=== PATIENT | female | born 1965 | race Two or more races ===

== ENCOUNTER 2024-04-14 21:27 | Emergency (ER) | payer MEDICAID, OTHER ==
[~2024-04-14] VITALS: Ht 165.1 cm; Wt 90.0 kg
[2024-04-14 21:56] LABS: Urine Bacteria None Seen /hpf (None Seen)
--- NOTE | 2024-04-14 21:59 | ED.PDOC ---
REGIONAL CONTROLLER HPI Comments HPI: Ross Maico HPI: Poor Historian. 58 y.o female presents to the ED for a chief complaint of vaginal bleeding that started today at 1330. Patient reports heavy bleeding and went through a total o f 7 pads today. Patient is in menopause x 10 years and states no previous bleeding since. Patient has pap smears done every 2 years that result normal. She reports some discomfort but no cramping or sharp pelvic or abdominal pain. She denies any use of blood thinners. VITALS: Temp: 99 F RR: 18 02 sat : 96% RA HR: 80 BP: 142/97 Past medical history: DM, HTN and Gout Past surgical history: x2 REVIEW OF SYSTEMS: CONSTITUTIONAL: Denies acute: fever, diaphoresis, chills, generalized weakness. HEAD: Denies acute: headache, photophobia Eyes: Denies acute: Double vision, vision loss, eye pain, eye discharge. EARS: Denies acute: tinnitus, hearing loss, ear discharge, ear pain, THROAT: Denies acute: sore throat, swelling, difficulty swallowing , pain with swallowing, change in voice. NECK: Denies acute: neck pain, neck swelling, stiff neck. HEART: Denies acute : chest pain, palpitations, LUNGS: Denies acute: SOB, wheezing, cough, hemoptysis ABDOMEN: Denies acute: abdominal pain, Nausea, Vomiting, diarrhea, melena , hematemesis, hematochezia SKIN: Denies acute: rash, redness, lesions, itchiness. EXTREMITIES: Denies acute: calf pain, numbness, tingling, weakness, denies pain in extremity. Denies acute: Low back pain. Neuro: Denies acute: focal neurological deficit, motor or sensory focal neurological deficit, tremors, seizure like activity, confusion, dizziness, change in mental status, loss of bowel or bladder function, cauda equina like symptoms. : Denies acute: dysuria, hematuria, flank pain, increase in urinary frequency. PSYCH: Denies acute: hallucination, suicidal ideation, homicidal ideation. FEMALE: Denies acute: foul odor, unusual discharge. PHYSICAL EXAM: General: no acute distress, awake and alert. Head: normocephalic, atraumatic. Neck: supple, trachea is midline, no swelling. Throat: Normal phonation. Eyes:, no erythema, no purulent discharge, no proptosis, no icterus. Heart: regular rate, regular rhythm, no significant murmur appreciated. Lungs: no apparent respiratory distress, Able to speak in full sentences. No wheezing, no rhonchi, no crackles. No stridors Clear to auscultation bilaterally. Abdomen: non tender to palpation, non distended, soft, no guarding, no rebound, + bowel sounds. Neuro: Awake, Alert, oriented to name, self, situation, follows commands GCS=15. Speech is normal. Skin: no petechia, no purpura, no cyanosis, non-pale, not jaundice. Lower extremities: --no - Pitting edema no deformity, no focal swelling, no calf TTP. Makes eye contact. moves all four extremities. Face: no apparent facial droop. Ambulating in the ED independently. Chief Complaint: Vaginal Bleed Time Seen by MD: 21:48 Reviewed Notes: Allergies Allergies: Coded Allergies: NO KNOWN ALLERGIES (Unverified , 04/15/24) Information Source: Patient Mode of Arrival: Ambulatory Timing: Hours Past Medical History PAST MEDICAL HISTORY: DM, Gout, HTN Surgical History: (2) ICT SALES REPRESENTATIVE History: No Pertinent ICT SALES REPRESENTATIVE History Family History Family History: Reviewed,noncontributory to illness Social History Smoker: Non-Smoker Alcohol: Denies ETOH Use Drugs: Denies Drug Use Lives In: Home Was a procedure done? Was a procedure done?: No Differential Diagnosis (ICT SALES REPRESENTATIVE) Vaginal Bleeding: Blood Loss Anemia, Dysmenorrhea, Hormonal, Menorrhagia, Menometrorrhagia, Menstrual Bleeding, Myomatous Uterus, UTI, Vaginitis X-Ray, Labs, Meds, VS Vital Signs Date Time Temp Pulse Resp B/P (MAP) Pulse Ox O2 Delivery O2 Flow Rate FiO2 04/15/24 01:01 98.9 88 18 140/90 (107) 96 98.9 04/15/24 00:56 Room Air* 0 21 04/14/24 21:46 99.2 80 18 142/97 (112) 96 Lab Test 04/15/24 02:44 04/14/24 23:05 04/14/24 22:08 04/14/24 21:56 Range/Units Hemoglobin 12.9 13.1 12.2-16.2 g/dL Hematocrit 38.6 38.4 36.0-46.0 % White Blood Count 9.5 4.4-10.8 10^3/uL Red Blood Count 4.50 4.0-5.20 10^6/uL Mean Corpuscular Volume 85.3 80.0-100.0 fL Mean Corpuscular Hemoglobin 29.1 28.0-32.0 pg Mean Corpuscular Hemoglobin Concent 34.1 32.0-36.0 g/dL Red Cell Distribution Width 14.5 H 11.8-14.3 % Platelet Count 328 140-450 10^3/uL Mean Platelet Volume 7.5 6.9-10.8 fL Neutrophils (%) (Auto) 41.8 37.0-80.0 % Lymphocytes (%) (Auto) 47.3 10.0-50.0 % Monocytes (%) (Auto) 7.9 0.0-12.0 % Eosinophils (%) (Auto) 1.9 0.0-7.0 % Basophils (%) (Auto) 1.1 0.0-2.0 % Neutrophils # (Auto) 4.0 1.6-8.6 10 ^3/uL Lymphocytes # (Auto) 4.5 0.4-5.4 10 ^3/uL Monocytes # (Auto) 0.8 0-1.3 10 ^3/uL Eosinophils # (Auto) 0.2 0-0.8 10 ^3/uL Basophils # (Auto) 0.1 0-0.2 10 ^3/uL Nucleated Red Blood Cells 0.1 % Sodium Level 137 136-145 mmol/L Potassium Level 4.1 3.5-5.1 mmol/L Chloride Level 104 98-107 mmol/L Carbon Dioxide Level 19 L 20-31 mmol/L Anion Gap 14 5-15 Blood Urea Nitrogen 27 H 9-23 mg/dL Creatinine 1.11 H 0.550-1.02 mg/dL Glomerular Filtration Rate Calc 58 >90 mL/min BUN/Creatinine Ratio 24.3 H 10.0-20.0 Serum Glucose 98 74-106 mg/dL Lactic Acid Level 0.9 0.4-2.0 mmol/L Calcium Level 10.8 H 8.7-10.4 mg/dL Total Bilirubin 0.3 0.2-1.0 mg/dL Aspartate Amino Transferase (AST) 23 13-40 U/L Alanine Aminotransferase (ALT) 30 7-40 U/L Alkaline Phosphatase 76 46-116 U/L Total Protein 7.7 5.7-8.2 g/dL Albumin 4.8 3.2-4.8 g/dL Urine Color Light-red Yellow Urine Clarity Ex.turbid Clear Urine pH 5.5 5.0-9.0 Urine Specific Stephenson 1.017 1.001-1.035 Urine Protein 1+ H Negative Urine Ketones Negative Negative Urine Blood 3+ H Negative /uL Urine Nitrite Negative Negative Urine Bilirubin Negative Negative Urine Urobilinogen Normal Negative mg/dL Urine Leukocyte Esterase 1+ Negative /uL Urine RBC 5315 0 - 4 /hpf Urine Microscopic WBC 1188 H 0-5 /HPF Urine Squamous Epithelial Cells Few <5 /hpf Urine Bacteria None seen None Seen /hpf Urine Glucose Normal Normal mg/dL Current Medications Medications (Trade) Dose Ordered Sig/Tomasz Route Start Time Stop Time Status Last Admin Sodium Chloride 1,000 ml @ 1,000 mls/hr Q1H ONCE IV 04/14/24 22:00 04/14/24 22:59 DC 04/15/24 00:55 [place] [address] Ph: [phone] DIAGNOSTIC IMAGING Diagnostic Imaging Report : [id number] Signed PATIENT: ROSS SOUSA ACCT: [id number] UNIT: [id number] : 1965 LOC: ER ROOM / BED: / AGE / SEX: 58 / F ADM STATUS: REG ER SERVICE 2340 ORDERING PHYSICIAN: CHAVA CHONG DO PROCEDURE(s): PELTR - TRANSVAGINAL US NON OB REASON: VAG BLEED ORDER NUMBER(s): [id number], ACCESSION NUMBER(s): [id number] INDICATION: vag bleed TECHNIQUE: Multiple real-time grayscale transabdominal and transvaginal sonographic images along with color and duplex Doppler of the uterus and ovaries were obtained. COMPARISON: None FINDINGS: The uterus measures 6.5 x 6.3 x 4.5 cm. The endometrial stripe measures 2.2 cm. Complex fluid is present within the endometrial canal. Ovaries are not visualized. IMPRESSION: Distended endometrium containing complex fluid possibly representing hemorrhage. ATED BY: RAFIQ CASTILLO MD DICTATED DATE/TIME: 04/15/242150 SIGNED BY: RAFIQ CASTILLO MD SIGNED DATE/TIME: 04/15/242150 CC: [address] [address] Ph: [phone] DIAGNOSTIC IMAGING Diagnostic Imaging Report : [id number] Signed PATIENT: ROSS SOUSA ACCT: [id number] UNIT: [id number] : 1965 LOC: ER ROOM / BED: / AGE / SEX: 58 / F ADM STATUS: REG ER SERVICE 50 ORDERING PHYSICIAN: CHAVA CHONG DO PROCEDURE(s): PELUS - PELVIC REASON: vag bleed ORDER NUMBER(s): [id number], ACCESSION NUMBER(s): [id number] INDICATION: vag bleed TECHNIQUE: Multiple real-time grayscale transabdominal and transvaginal sonographic images along with color and duplex Doppler of the uterus and ovaries were obtained. COMPARISON: None FINDINGS: The uterus measures 6.5 x 6.3 x 4.5 cm. The endometrial stripe measures 2.2 cm. Complex fluid is present within the endometrial canal. Ovaries are not visualized. IMPRESSION: Distended endometrium containing complex fluid possibly representing hemorrhage. ATED BY: RAFIQ CASTILLO MD DICTATED DATE/TIME: 04/15/242150 SIGNED BY: RAFIQ CASTILLO MD SIGNED DATE/TIME: 04/15/242150 CC: Time of 1ST Reevaluation: 21:54 Reevaluation 1ST: Unchanged Patient Education/Counseling: Diagnosis, Treatment Family Education/Counseling: No Family Present Comments Patient presented with the above HPI. Vaginal bleeding workup was initiated. patient was found with the above mentioned diagnosis. the following medications were ordered: IV fluids the following tests were ordered: CMP, CBC, UA, EKG, BBK type and screen, hemoglobin & hematocrit, Patient ED course and VS have been stabilized. Patient has been reassessed in the ED and remained in a stable condition. Pertinent incidental findings were discussed with the patient and/or family. Patient/family voices understanding and is agreeable with plan. Patient has been observed in the ED adequate length of time to insure improvement/stability. Escalation of care considered: Consideration of escalation to observation or admission Patient was given fluid boluses. Repeat H and H was obtained that patient remains hemodynamically stable. Patient was DISCHARGED home in a stable condition. All the reports of any imaging studies that were ordered by myself were reviewed by myself. Departure 1 Departure Time of Disposition: 22:14 Impression: Primary Impression: Vaginal bleeding Additional Impression: Dysfunctional uterine bleeding Disposition: HOME / SELF CARE / HOMELESS Condition: Stable Additional Instructions: Additional discharge instructions: You MUST follow-up with your primary care/family doctor in 1 to 2 days. If you are unable to see your primary care/family doctor, please return to our emergency room for re-assessment and re-evaluation in 1 to 2 days. Return to the emergency room here in our facility or to the nearest ER [facility] if your symptoms change or worsen. CONSULTATIONS: you MUST Follow-up for consultation as soon as possible with: Dr. MADHAVI De Jesus doctor in 1-2 days. Please call for appointment. You MUST call the consultants office yourself to make an appointment. You may need to arrange that through your insurance and/or your primary/family doctor. If you are unable to see the senior energy consultant in 1 to 2 days, you must return to our emergency room (or any other ER of your choice) for re-assessment and re- evaluation. Adequate fluid hydration. Take daily iron supplements as instructed. Repeat CBC in 24-48 hours. Below is a copy of your radiological report for follow up: [place] [address] Ph: [phone] DIAGNOSTIC IMAGING Diagnostic Imaging Report : [id number] Signed PATIENT: ROSS SOUSA ACCT: [id number] UNIT: [id number] : 1965 LOC: ER ROOM / BED: / AGE / SEX: 58 / F ADM STATUS: REG ER SERVICE [id number] ORDERING PHYSICIAN: CHAVA CHONG DO PROCEDURE(s): PELTR - TRANSVAGINAL US NON OB REASON: VAG BLEED ORDER NUMBER(s): [id number], ACCESSION NUMBER(s): [id number] INDICATION: vag bleed TECHNIQUE: Multiple real-time grayscale transabdominal and transvaginal sonographic images along with color and duplex Doppler of the uterus and ovaries were obtained. COMPARISON: None FINDINGS: The uterus measures 6.5 x 6.3 x 4.5 cm. The endometrial stripe measures 2.2 cm. Complex fluid is present within the endometrial canal. Ovaries are not visualized. IMPRESSION: Distended endometrium containing complex fluid possibly representing hemorrhage. ATED BY: RAFIQ CASTILLO MD DICTATED DATE/TIME: 04/15/242150 SIGNED BY: RAFIQ CASTILLO MD SIGNED DATE/TIME: 04/15/242150 CC: Discharged With: Self Critical Care Note Critical Care Time?: No I personally scribed for CHAVA CHONG DO ([email or web address]) on 04/14/24 at 21:59. Electronically submitted by Tiffani Arteaga ([email or web address]). I personally scribed for CHAVA CHONG DO ([email or web address]) on 04/15/24 at 03:11. Electronically submitted by Todd Patricia ([email or web address]). CHAVA CHONG DO Apr 14, 2024 21:59
[2024-04-14 22:16] LABS: Urine Blood 3+ /uL (Negative); Urine Clarity Ex.Turbid (Clear); Urine Color Light-Red (Yellow); Urine Protein, UAD 1+ (Negative); Urine Specific Gravity 1.017 (1.001-1.035); Urine Squamous Epithelial Cell FEW /hpf (<5); Urine Urobilinogen Normal (Negative); Urine WBC 1188 /HPF (0-5); Urine pH 5.5 (5.0-9.0)
[2024-04-14 23:09] LABS: Alanine Aminotransferase 30 U/L (7-40); Alkaline Phosphatase 76 U/L (46-116); Chloride 104 mmol/L (98-107)
[2024-04-14 23:10] LABS: Anion Gap 14 (5-15); Aspartate Aminotransferase 23 U/L (13-40); BUN/Creatinine Ratio 24.3 (10.0-20.0); Glucose 98 mg/dL (74-106); Potassium 4.1 mmol/L (3.5-5.1); Sodium 137 mmol/L (136-145); Total Protein 7.7 g/dL (5.7-8.2)
[2024-04-14 23:11] LABS: Carbon Dioxide 19 mmol/L (20-31)
[2024-04-14 23:12] LABS: Albumin 4.8 g/dL (3.2-4.8); Bilirubin, Total 0.3 mg/dL (0.2-1.0); Blood Urea Nitrogen 27 mg/dL (9-23); Calcium 10.8 mg/dL (8.7-10.4)
[2024-04-14 23:27] LABS: Basophils # (auto) 0.1 10 ^3/uL (0-0.2); Basophils % (auto) 1.1 % (0.0-2.0); Eosinophils # (auto) 0.2 10 ^3/uL (0-0.8); Eosinophils % (auto) 1.9 % (0.0-7.0); Hematocrit 38.4 % (36.0-46.0); Hemoglobin 13.1 g/dL (12.2-16.2); Lymphocytes # (auto) 4.5 10 ^3/uL (0.4-5.4); Lymphocytes % (auto) 47.3 % (10.0-50.0); Mean Corpuscular Hemoglobin 29.1 pg (28.0-32.0); Mean Corpuscular Hgb Conc. 34.1 g/dL (32.0-36.0); Mean Corpuscular Volume 85.3 fL (80.0-100.0); Monocytes # (auto) 0.8 10 ^3/uL (0-1.3); Monocytes % (auto) 7.9 % (0.0-12.0); Neutrophils % (auto) 41.8 % (37.0-80.0); Nucleated Red Blood Cells % 0.1 %; Platelet Count (auto) 328 10^3/uL (140-450); Red Cell Distribution Width 14.5 % (11.8-14.3); White Blood Cell 9.5 10^3/uL (4.4-10.8)
--- NOTE | 2024-04-15 00:05 | DVH ---
INDICATION: vag bleed TECHNIQUE: Multiple real-time grayscale transabdominal and transvaginal sonographic images along with color and duplex Doppler of the uterus and ovaries were obtained. COMPARISON: None FINDINGS: The uterus measures 6.5 x 6.3 x 4.5 cm. The endometrial stripe measures 2.2 cm. Complex flu id is present within the endometrial canal. Ovaries are not visualized. IMPRESSION: Distended endometrium containing complex fluid possibly representing hemorrhage.
[2024-04-15] MEDS: SODIUM CHLORIDE 0.9% 1,000 ML IV ONE (00:55)
[2024-04-15 01:01] VITALS: BP 140/90; PULSE 88; RESP 18; TEMP 98.9; O2SAT 96
[2024-04-15 03:14] LABS: Hematocrit 38.6 % (36.0-46.0); Hemoglobin 12.9 g/dL (12.2-16.2)
== END 2024-04-15 04:14 | disposition home or self-care (01) ==
LOC: EEVIPCON 21:27 → ER 21:27
DX: N93.8 Other specified abnormal uterine and vaginal bleeding (principal); E11.9 Type 2 diabetes mellitus without complications; I10 Essential (primary) hypertension; Z98.890 Other specified postprocedural states; Z79.899 Other long term (current) drug therapy
CPT/HCPCS: 36415; 76830; 76856; 80053; 81001; 83605; 85014; 85018; 86850; 86900; 86901; 87086; 96360; 96361; 99284; J7030